=== PATIENT | male | born 1935 | race Caucasian/White ===

== ENCOUNTER 2017-06-08 11:02 | Day surgery (SDC) | payer MEDICARE ==
--- NOTE | 2017-06-08 12:10 | ED Physician Documentation ---
PD HPI UPPER EXT INJURY - Stated complaint Stated Complaint: R HAND LAC - Chief complaint Chief Complaint: Laceration - History obtained from History obtained from: Patient - History of Present Illness Location: Other (He was at home working on his 's computer, he took out the hard drive and there was a sharp edge on it and he cut the dorsum of the right hand at the second digit, the level of the MCP. He is up-to-date on tetanus.) Review of Systems Ten Systems: 10 systems reviewed and negative Constitutional: reports: Reviewed and negative Throat: reports: Reviewed and negative Cardiac: reports: Reviewed and negative PD PAST MEDICAL HISTORY - Past Medical History Past Medical History: Yes Cardiovascular: None Respiratory: Asthma Endocrine/Autoimmune: None GI: GERD, Colon polyps, Diverticulitis : Benign prostate hypertrophy, Kidney stones HEENT: Chronic vision loss, Chronic hearing loss Psych: None Musculoskeletal: Osteoarthritis Derm: None - Past Surgical History Past Surgical History: Yes General: Appendectomy, Colonoscopy, EGD HEENT: Tonsil/Adenoidectomy - Present Medications Home Medications: Ambulatory Orders Medication Instructions Recorded Confirmed Albuterol [Ventolin Hfa] 1 mg INH BID 05/18/15 07/01/16 Aspirin [Aspir 81] 81 mg PO DAILY 05/18/15 07/01/16 Fluticasone [Flonase] 1 spray PAPI DAILY 05/18/15 07/01/16 Loratadine [Claritin] 10 mg PO DAILY 05/18/15 07/01/16 Melatonin 5 mg PO DAILY 05/18/15 07/01/16 Pantoprazole [Protonix] 1 tab PO DAILY 06/08/17 06/08/17 - Allergies Allergies/Adverse Reactions: Allergies Allergy/AdvReac Type Severity Reaction Status Date / Time Sulfa (Sulfonamide Allergy Anaphylaxis Verified 06/08/17 12:19 Antibiotics) hydrocodone AdvReac Unknown Verified 06/08/17 12:19 oxycodone AdvReac Unknown Verified 06/08/17 12:19 - Social History Does the pt smoke?: Yes Smoking Status: Current every day smoker Does the pt drink ETOH?: Yes ETOH Use: Wine Does the pt have substance abuse?: No - Family History Family history: reports: Non contributory - Immunizations Immunizations are current?: Yes PD ED PE NORMAL - Vitals Vital signs reviewed: Yes - General General: Alert and oriented X 3, No acute distress - HEENT HEENT: PERRL, EOMI - Neck Neck: Supple, no meningeal sign, No bony TTP - Cardiac Cardiac: RRR, No murmur - Respiratory Respiratory: No respiratory distress, Clear bilaterally - Abdomen Abdomen: Soft, Non tender - Back Back: No CVA TTP, No spinal TTP - Derm Derm: Normal color, Warm and dry - Extremities Extremities: Other (On the dorsal surface of the right hand at the level of the second MCP there is a 2 cm laceration that has almost completely lacerated the extensor tendon and he has no function with extensor tendon strength, he does have normal cap refill and sensation at both sides of the tip.) - Neuro Neuro: Alert and oriented X 3, Normal speech - Psych Psych: Normal mood, Normal affect Results - Vitals Vitals: Vital Signs - 24 hr 06/08/17 06/08/17 11:07 12:31 Temperature 36.7 C 36.5 C Heart Rate 60 59 L Respiratory 16 16 Rate Blood Pressure 149/79 H 142/78 H O2 Saturation 99 99 Oxygen O2 Source Room air Procedures - Laceration (location) R hand Length in cm: 2 Wound type: Linear Neurovascular status: Sensory intact. No: Motor intact Tendon involvement: Tendon Injury Anesthesia: Lidocaine 1%, With bicarb Wound Preparation: Irrigated copiously NS Skin layer closure: Nylon, Interrupted, Size #-0 - enter number (4-0), Sutures - enter # (5) Other: Tetanus UTD Complexity: Simple PD MEDICAL DECISION MAKING - ED course ED course: 82-year-old gentleman relatively healthy for age presents with an extensive tendon laceration of the right second finger at the level of the MCP, he is up- to-date on tetanus. Wound was irrigated and closed, spoke with Dr. Crowe, the on- call orthopedist at 12:20 PM, he will check with the OR and if able take him to the OR today for Definitive extensor tendon repair. He did take him directly to the OR for extensor tendon repair. At his request he received Ancef in the ER. Departure - Departure Disposition: ED Transfer to [facility] Clinical Impression: Extensor tendon laceration of finger with open wound Qualifiers: Encounter type: initial encounter Qualified Code(s): S66.529A - Laceration of intrinsic muscle, fascia and tendon of unspecified finger at wrist and hand level, initial encounter Condition: Stable Discharge Date/Time: 06/08/17 13:55
[2017-06-08] MEDS ORDERED: BUFFERED LIDOCAINE 10 ML SYRINGE ONE (12:16)
[2017-06-08] MEDS ORDERED: SODIUM CHLORIDE 0.9% 1,000 ML IV ONE ×2 (12:35→14:31)
[2017-06-08] MEDS ORDERED: SODIUM CHLORIDE FLUSH 0.9% 10 ML SYRINGE IVP ONE (12:54)
[2017-06-08] MEDS ORDERED: ceFAZolin 2 GM/50 ML 2 GM/50 ML BAG IV ONE ×2 (13:04→13:22)
--- NOTE | 2017-06-08 13:30 | PROVIDER PROGRESS NOTE ---
Subjective - Prog Note Date Prog Note Date: 06/08/17 Prog Note Time: 13:27 - Subjective Subjective: Sustained a dorsal laceration about the right dominant index finger MCP joint. No distal weakness/numbness, although some limitation in finger extension Objective - Vital Signs/Intake & Output Vital Signs: Vital Signs x48h Temp Pulse Resp BP Pulse Ox 06/08/17 12:31 36.5 C 59 L 16 142/78 H 99 06/08/17 11:07 36.7 C 60 16 149/79 H 99 - Other Results/Comments Other Results/Comments: EXAM: Dorsal index finger laceration repaired by ED MD. Active extension of index finger MCP joint showed 10-15 degree extensor lag. N/V ok distally Assessment/Plan - Problem List (1) Extensor tendon laceration of finger with open wound Impression: PLAN: Surgical exploration of finger laceration with wash out and repair of extensor tendon laceration in OR as an putoatient today. Last ate yesterday; only water and meds at 0900 today. Consent signed. Note dictated Qualifiers: Encounter type: initial encounter Qualified Code(s): S66.529A - Laceration of intrinsic muscle, fascia and tendon of unspecified finger at wrist and hand level, initial encounter; S61.209A - Unspecified open wound of unspecified finger without damage to nail, initial encounter; S61.209A - Unspecified open wound of unspecified finger without damage to nail, initial encounter
--- NOTE | 2017-06-08 13:46 | HISTORY & PHYSICAL EXAMINATION ---
DATE OF ADMISSION: 06/08/2017 REQUESTING PROVIDER: Dr. Mayank Covarrubias of the emergency room. CHIEF COMPLAINT: "I cut my right index finger." HISTORY OF PRESENT ILLNESS: The patient is an 82-year-old right hand dominant male who was apparently attempting to remove the hard drive from his 's PC sustaining a dorsal laceration over his index finger at approximately 11 a.m. on the morning of his admission. Exploration done in the e mergency room by Dr. Covarrubias showed the patient had extensor tendon laceration to the index finger. He had limitation in his active extension of his finger. Wound was washed then primarily closed. Becaus e of the involvement of the tendon it was elected to take him to the operating room as an outpatient for an exploration and repair as indicated. The patient denies having any problems with his finger in the past. No other injuries occurred. PAST MEDICAL HISTORY: Chronic illnesses - history of hypertension. CURRENT MEDICATIONS: PLEASE SEE ADMISSION NOTE IN THE EMERGENCY ROOM. ALLERGIES: 1. SULFA. 2. OPIOID ANALGESICS SUCH HYDROCODONE AND OXYCODONE. FAMILY HISTORY: Noncontributory. REVIEW OF SYSTEMS: Noncontributory. PHYSICAL EXAMINATION: Revealed a healthy-appearing, elderly male in mild distress. VITAL SIGNS: Please see ER admission note. HEENT: Normocephalic, PERRLA. EOMI. Nose and throat clear. NECK: Supple without nodes. CHEST: Clear. CARDIOVASCULAR: Regular rate and rhythm. S1 and S2 heard without murmurs, rubs, or gallops. ABDOMEN: Soft, nontender. Active bowel sounds noted. EXTREMITIES: Within normal limits except for the right index finger. The patient has primarily repair ed oblique laceration just proximal to the MCP joint of his index finger. Minimal swelling or erythem a noted. The patient does have some extension of the MCP joint actively though he does have about 10- 15 degrees extensor lag noted. The patient neurovascular is intact distally in his index finger and t he rest of his digits as well. NEUROLOGIC: The patient alert and oriented x3. Sensory and motor examination grossly intact and symme trical. ASSESSMENT: Right dominant index finger laceration - involves extensor tendon laceration. PLAN: Treatment options were explained to the patient. He is in favor of proceeding with surgical exp loration of his wound and repair of his extensor tendon laceration as indicated. The risks and benefi ts of surgery explained including anesthesia, risk of infection or tendon damage, neurovascular compr omise. The patient appears to understand these risks as well as the benefits of proceeding with surge ry and wishes to proceed. Consent has been signed. JOB #: [id number] EXT JOB #:[id number]
[2017-06-08] MEDS ORDERED: BUPIVACAINE 0.5% PF 30 ML VIAL INFIL ONE (14:24)
[2017-06-08] MEDS ORDERED: MIDAZOLAM 2 MG/2 ML VIAL IVP ONE (14:40)
[2017-06-08] MEDS ORDERED: PROPOFOL 200 MG/20 ML VIAL IVP ONE (14:40)
[2017-06-08] MEDS ORDERED: LIDOCAINE-MPF 2% 5 ML VIAL IM ONE (14:40)
--- NOTE | 2017-06-08 14:53 | OPERATIVE REPORT ---
Operative Report - General Procedure Date: 06/08/17 Planned Procedure: Repair of right index finger extensor tendon laceration Pre-Op Diagnosis: Right index finger extensor tendon laceration Procedure Performed: Irrigation and debridement of right index finger laceration; primary repair of right index finger extensor tendon laceration Post Op Diagnosis: Same - Procedure Note Primary Surgeon: Thanh Crowe Secondary Surgeon: Isa Anesthesia Provider: Jeferson Bunch Anesthesia Technique: General ET tube IV Fluids (mL): 500 Estimated Blood Loss (mL): 50
[2017-06-08 15:06] VITALS: BP 132/59
--- NOTE | 2017-06-08 15:14 | OPERATIVE REPORT ---
DATE OF SURGERY: 06/08/2017 00:00:00 PREOPERATIVE DIAGNOSES 1. Right dominant index finger laceration. 2. Right index finger extensor tendon laceration. POSTOPERATIVE DIAGNOSES 1. Right dominant index finger laceration. 2. Right index finger extensor tendon laceration. NAME OF PROCEDURE: Irrigation and debridement of right index finger laceration, primary repair of rig ht index finger extensor tendon laceration. SURGEON: Thanh Crowe MD. ANESTHESIA: General. DESCRIPTION OF PROCEDURE: The patient was taken to the operating room on the afternoon of 06/08/2017 where he was placed under general anesthetic without any complications. Prior to our incision, we did put a field block using 15 mL of 0.5% Marcaine without epinephrine about the dorsum of his index fin traci about the metacarpophalangeal joint. We then prepped and draped the finger in the usual fashion f or our procedure. We opened the wound up, which had been previously closed by the emergency room doct or. This then exposed the transverse extensor tendon laceration over the extensor mechanism overlying the MTP joint. I then copiously irrigated the wound out thoroughly with 1000 mL of irrigation soluti on. We then repaired the extensor tendon laceration using several horizontal mattress stitches of 4-0 Polysorb suture. This approximated the extensor tendon laceration and laceration extensor mechanism nicely. We then closed the skin laceration using interrupted horizontal mattress stitches of 4-0 nylo n suture. We then washed the wound and dressed it with Xeroform gauze and 4 x 4's. We then applied a palmar metal aluminum finger splint holding the MCP joint in approximately 10 degrees of flexion with the IP joint of the index finger in extension. It should be noted that we did inflate the tourniquet for 16 minutes at 250 mmHg pressure during the mid portion of our incision to assist with hemostasis as we repaired the extensor tendon laceration. At the end of procedure after we had dressed the wound, the patient was taken to the recovery room in satisfactory condition. ESTIMATED BLOOD LOSS: Less than 50 mL. REPLACEMENT: 500 mL of crystalloid. INTRAOPERATIVE COMPLICATIONS: None. TOURNIQUET TIME: 6 minutes. PLAN: The patient will keep the finger in about 10-15 degrees of flexion at the MCP joint for approxi mately 3-4 weeks. We will then begin working on active range of motion at the MCP joint in flexion an d extension. Will follow up in the orthopedic clinic in approximately 10 days' time for a wound check and suture removal as indicated. JOB #: [id number] EXT JOB #:[id number]
== END 2017-06-08 13:23 | disposition home or self-care (01) ==
LOC: ED 11:02 → SDS 13:22
PROVIDERS: ATTEND Orthopaedic Surgery
PROC: 0LQ70ZZ Repair Right Hand Tendon, Open Approach (ICD-10-PCS; principal; 2017-06-08 13:15)
DX: S66.320A Laceration of extensor muscle, fascia and tendon of right index finger at wrist and hand level, initial encounter (principal); S61.210A Laceration without foreign body of right index finger without damage to nail, initial encounter; W26.8XXA Contact with other sharp object(s), not elsewhere classified, initial encounter; J45.909 Unspecified asthma, uncomplicated; F17.200 Nicotine dependence, unspecified, uncomplicated
CPT/HCPCS: 26418; 96365; 99283; 99284; J0690; 12001

== ENCOUNTER 2018-04-21 09:23 | Outpatient (CLI) | payer MEDICARE ==
[2018-04-21 12:26] LABS: BASOPHILS # (AUTO) 0.1 10^3/uL (0.0-0.1); BASOPHILS % (AUTO) 1.7 %; EOSINOPHILS # (AUTO) 0.5 10^3/uL (0.0-0.7); EOSINOPHILS % (AUTO) 8.7 %; HGB - HEMOGLOBIN 13.8 g/dL (14.0-18.0); LYMPHOCYTES # (AUTO) 1.5 10^3/uL (1.5-3.5); LYMPHOCYTES % (AUTO) 25.8 %; MEAN CORPUSCULAR HEMOGLOBIN 35.2 pg (27.0-31.0); MEAN CORPUSCULAR HGB CONC 35.2 g/dL (32.0-36.0); MEAN PLATELET VOLUME 8.1 fL (7.4-11.4); MONOCYTES # (AUTO) 0.7 10^3/uL (0.0-1.0); MONOCYTES % (AUTO) 11.3 %; NEUTROPHILS # (AUTO) 3.1 10^3/uL (1.5-6.6); NEUTROPHILS % (AUTO) 52.5 %; PLT - PLATELET COUNT 259 10^3/uL (130-450); RED BLOOD COUNT 3.92 10^6/uL (4.70-6.10); RED CELL DISTRIBUTION WIDTH 13.9 % (12.0-15.0); WHITE BLOOD COUNT 5.9 x10^3/uL (4.8-10.8)
[2018-04-21 12:29] LABS: ALBUMIN 4.1 g/dL (3.2-5.5); ALBUMIN/GLOBULIN RATIO 1.6 (1.0-2.2); ALKALINE PHOSPHATASE 58 IU/L (42-121); ALT ALANINE AMINOTRANSFERASE 18 IU/L (10-60); AST ASPARTATE AMINOTRANSFERASE 20 IU/L (10-42); BUN - BLOOD UREA NITROGEN 18 mg/dL (6-20); CALCIUM 9.3 mg/dL (8.5-10.3); CARBON DIOXIDE - CO2 29 mmol/L (21-32); CHLORIDE 103 mmol/L (101-111); CHOL/HDL RATIO 2.9 (<5.0); CHOLESTEROL 163 mg/dL; GFR - MDRD 72 (>89); GLUCOSE 92 mg/dL (70-100); HDL CHOLESTEROL 56 mg/dL; LDL CHOLESTEROL,CALCULATED 89 mg/dL; LDL/HDL RATIO 1.6 (<3.6); SODIUM 140 mmol/L (135-145); TOTAL PROTEIN 6.6 g/dL (6.7-8.2); VLDL CHOLESTEROL 18 mg/dL
== END 2018-04-21 09:24 ==
LOC: LAB.WCP 09:23
PROVIDERS: ATTEND Family Medicine
DX: R05 Cough (principal); E55.9 Vitamin D deficiency, unspecified; R19.7 Diarrhea, unspecified; E78.5 Hyperlipidemia, unspecified; N40.0 Benign prostatic hyperplasia without lower urinary tract symptoms
CPT/HCPCS: 36415; 80053; 80061; 82306; 84443; 85025; G0103; 83721; 84153

== ENCOUNTER 2018-04-30 14:52 | Outpatient (CLI) | payer MEDICARE | END 2018-04-30 14:53 | disposition home or self-care (01) | LOC: LAB.R 14:52 | PROVIDERS: ATTEND Family Medicine | DX: R05 Cough (principal); R19.7 Diarrhea, unspecified; E55.9 Vitamin D deficiency, unspecified; E78.9 Disorder of lipoprotein metabolism, unspecified | CPT/HCPCS: 82274; 87045; 87046; 87177; 87209; 89055 ==

== ENCOUNTER 2018-05-05 13:09 | Outpatient (CLI) | payer MEDICARE ==
[2018-05-05] MEDS ORDERED: ALBUTEROL NEB 2.5 MG/3 ML INH ONE (14:00)
== END 2018-05-05 13:10 | disposition home or self-care (01) ==
LOC: RT 13:09
PROVIDERS: ATTEND Family Medicine
DX: R05 Cough (principal); M85.88 Other specified disorders of bone density and structure, other site
CPT/HCPCS: 77080; 94060; 94664

== ENCOUNTER 2018-05-05 14:57 | Outpatient (CLI) | payer MEDICARE ==
--- NOTE | 2018-05-06 08:41 | DEXA Report ---
Reason: OSTEOPOROSIS Procedure Date: 05/05/2018 Accession Number: [id number] / [id number] Procedure: DEX - Dexa Spine and/or Hip CPT Code: FULL RESULT: EXAM: Dexa Spine and/or Hip DATE: 05/05/2018 4:20 PM CLINICAL HISTORY: OSTEOPOROSIS TECHNIQUE: Dual energy x-ray absorptiometry (DXA) was performed on a [email or web address] System. Regions measured are the AP Spine, femoral neck, and if needed forearm. COMPARISON: None. In accordance with the International Society for Clinical Densitometry (ISCD) guidelines, data from previous exams may be reanalyzed using current recommendations and techniques. This is done to allow a more accurate basis for comparison with the current study. FINDINGS: The data for the lumbar spine is as follows: BMD (g/cm/cm) T-SCORE Z-SCORE REGION L1 1.508 2.9 4.0 L2 1.618 3.1 4.2 L3 1.493 2.1 3.2 L4 1.473 1.9 3.0 TOTAL 1.515 2.5 3.5 NOTE: All evaluable vertebrae are used for classification The data for the hip is as follows: BMD (g/cm/cm) T-SCORE Z-SCORE REGION Neck 0.990 -0.6 1.2 TOTAL 0.961 -1.0 0.4 NOTE: The femoral neck or total proximal femur, whichever is lowest, is used for classification. IMPRESSION: THE WHO CLASSIFICATION BASED ON THE INTERNATIONAL REFERENCE STANDARD IS OSTEOPENIA. THE FRACTURE RISK IS INCREASED. RECOMMENDATION: Patients with diagnosis of osteoporosis or osteopenia should have regular bone mineral density assessment. For those eligible for Medicare, routine testing is allowed once every 2 years. Testing frequency can be increased for patients who have rapidly progressing disease or for those who are receiving medical therapy to restore bone mass. COMMENT: World Health Organization (WHO) definitions for osteoporosis and osteopenia: NORMAL BMD: T-score at -1.0 or higher, fracture risk is low OSTEOPENIA BMD: T-score between -1.0 and -2.5, fracture risk is increased. OSTEOPOROSIS BMD: T-score at -2.5 or lower, fracture risk is high. National Osteoporosis Foundation recommends: 1. Obtain adequate dietary calcium (at least 1200 mg per day) and vitamin D (400-800 international units per day). 2. Participate, as appropriate, in regular weightbearing and muscle-strengthening exercise. 3. Avoid tobacco use and reduce alcohol and caffeine intake. 4. For more detailed information see the website at www.NOF.org.
== END 2018-05-05 14:58 | disposition home or self-care (01) ==
LOC: DI 14:57
PROVIDERS: ATTEND Family Medicine
DX: M85.88 Other specified disorders of bone density and structure, other site (principal)
CPT/HCPCS: 77080

== ENCOUNTER 2018-05-17 09:58 | Day surgery (SDC) | payer MEDICARE ==
[2018-05-17] MEDS ORDERED: LACTATED RINGERS 1,000 ML IV ONE (10:58)
[2018-05-17] MEDS ORDERED: LIDO GARGLE 30 ML BOTTLE ONE (11:25)
[2018-05-17] MEDS ORDERED: MIDAZOLAM 2 MG/2 ML VIAL IVP ONE (12:58)
[2018-05-17] MEDS ORDERED: fentaNYL 100 MCG/2 ML VIAL IVP ONE (12:58)
[2018-05-17 14:44] VITALS: BP 137/72
== END 2018-05-17 09:59 | disposition home or self-care (01) ==
LOC: SDS 09:58
PROVIDERS: ATTEND Surgery
PROC: 0DB68ZX Excision of Stomach, Via Natural or Artificial Opening Endoscopic, Diagnostic (ICD-10-PCS; 2018-05-17)
PROC: 0DB38ZX Excision of Lower Esophagus, Via Natural or Artificial Opening Endoscopic, Diagnostic (ICD-10-PCS; principal; 2018-05-17 11:15)
DX: K22.70 Barrett's esophagus without dysplasia (principal); K29.70 Gastritis, unspecified, without bleeding; F17.290 Nicotine dependence, other tobacco product, uncomplicated
CPT/HCPCS: 43239; A9270; J7120

== ENCOUNTER 2018-11-04 08:00 | Outpatient (CLI) | payer MEDICARE ==
[2018-11-04 19:05] LABS: HGB - HEMOGLOBIN 12.9 g/dL (14.0-18.0); MEAN CORPUSCULAR HEMOGLOBIN 33.4 pg (27.0-31.0); MEAN CORPUSCULAR VOLUME 101.2 fL (80.0-94.0); MEAN PLATELET VOLUME 7.8 fL (7.4-11.4); RED BLOOD COUNT 3.85 10^6/uL (4.70-6.10); RED CELL DISTRIBUTION WIDTH 13.7 % (12.0-15.0); WHITE BLOOD COUNT 5.6 x10^3/uL (4.8-10.8)
[2018-11-04 19:18] LABS: RHEUMATOID FACTOR NEGATIVE (Negative)
== END 2018-11-04 23:59 | disposition home or self-care (01) ==
LOC: LAB.WCP 08:00
PROVIDERS: ATTEND Family Medicine
DX: M31.6 Other giant cell arteritis (principal)
CPT/HCPCS: 36415; 85027; 85651; 86140; 86200; 86430

== ENCOUNTER 2019-02-07 12:30 | Outpatient (CLI) | payer MEDICARE | END 2019-02-07 12:31 | disposition home or self-care (01) | LOC: LAB.WCP 12:30 | PROVIDERS: ATTEND Family Medicine | DX: Z11.59 Encounter for screening for other viral diseases (principal) | CPT/HCPCS: 81599 ==

== ENCOUNTER 2019-02-07 13:24 | Outpatient (CLI) | payer MEDICARE ==
--- NOTE | 2019-02-07 16:03 | XRAY Report ---
Reason: SHOULDER JOINT PAIN,LEFT Procedure Date: 02/07/2019 Accession Number: [id number] / [id number] Procedure: WCP - Shoulder 2 View LT CPT Code: FULL RESULT: EXAM: LEFT SHOULDER RADIOGRAPHY EXAM DATE: 02/07/2019 02:30 PM. CLINICAL HISTORY: Shoulder joint pain, left. COMPARISON: None. TECHNIQUE: 2 views. FINDINGS: Bones: Normal. No fracture or aggressive appearing bone lesion. Joints: The glenohumeral and acromioclavicular joints are normally located. Soft tissues: There is a hyperdense soft tissue prominence along the proximal humeral shaft on the axillary view which appears to be ovoid in shape, 6.4 cm long and 3.2 cm thick. IMPRESSION: No fracture or dislocation. Apparent soft tissue mass is of unclear significance. This could potentially be due to overlap of soft tissues. Recommendation: If the patient is tender along the proximal humeral diaphysis, recommend additional imaging by ultrasound. Otherwise, clinical correlation versus radiographic clarification with 2 views of the humerus. RADIA
== END 2019-02-07 13:25 | disposition home or self-care (01) ==
LOC: DI.WCP 13:24
PROVIDERS: ATTEND Family Medicine
DX: M25.512 Pain in left shoulder (principal); R93.7 Abnormal findings on diagnostic imaging of other parts of musculoskeletal system; Z11.59 Encounter for screening for other viral diseases
CPT/HCPCS: 81599

== ENCOUNTER 2019-02-10 10:15 | Outpatient (CLI) | payer MEDICARE ==
--- NOTE | 2019-02-11 08:59 | CT Report ---
Reason: COPD,COUGH CHRONIC Procedure Date: 02/10/2019 Accession Number: [id number] / [id number] Procedure: CT - CHEST WO CPT Code: FULL RESULT: EXAM: CT CHEST EXAM DATE: 02/10/2019 10:35 AM. CLINICAL HISTORY: COPD, chronic cough. COMPARISONS: 10/30/2008 9:13 PM. TECHNIQUE: Routine helical CT imaging was performed through the chest. IV contrast: None. Reconstructions: Coronal and sagittal. In accordance with CT protocol optimization, one or more of the following dose reduction techniques were utilized for this exam: automated exposure control, adjustment of mA and/or KV based on patient size, or use of iterative reconstructive technique. FINDINGS: Lungs/Pleura: Mild linear atelectasis or scarring present about the left base. No consolidation, nodules, effusions or edema evident. No bronchial wall thickening evident. No visible changes of emphysema but the lungs do appear mildly hyperinflated.. Mediastinum: The mediastinum is narrowed. No mediastinal mass or adenopathy. Mild to moderate coronary arterial vascular calcification present. The aorta is normal in caliber. Bones: Severe L1-L2 degenerative disk disease present. More mild to moderate disease present throughout the mid thoracic spine. Visualized Abdomen: A solitary gallbladder stone is again present unchanged. Other: None. IMPRESSION: 1. No acute consolidation. Mild linear atelectasis or scarring left base. 2. Pulmonary hyperinflation present but without significant visible emphysema. 3. Solitary gallbladder stone as before. RADIA
== END 2019-02-10 10:16 | disposition home or self-care (01) ==
LOC: DI 10:15
PROVIDERS: ATTEND Family Medicine
DX: J44.9 Chronic obstructive pulmonary disease, unspecified (principal); R05 Cough
CPT/HCPCS: 71250

== ENCOUNTER 2019-09-06 09:44 | Outpatient (CLI) | payer MEDICARE ==
--- NOTE | 2019-09-06 12:23 | MRI Report ---
Reason: CERVICAL RADICULOPATHY Procedure Date: 09/06/2019 Accession Number: [id number] / [id number] Procedure: MRI - Cervical Spine W/O CPT Code: Final Report FULL RESULT: EXAM: MRI CERVICAL SPINE WITHOUT CONTRAST EXAM DATE: 09/06/2019 10:35 AM. CLINICAL HISTORY: CERVICAL RADICULOPATHY. COMPARISONS: MRI CERVICAL SPINE 08/14/2012 12:31 PM. TECHNIQUE: Multiplanar, multisequence T1-weighted and fluid-sensitive sequences of the cervical spine without contrast. Other: None. FINDINGS: Neurologic Structures: The visualized posterior fossa structures are unremarkable. No signal abnormality in the visualized spinal cord. Alignment: Grade 1 anterolisthesis at C4-C5 by approximately 2 mm. Bone Marrow: No gross fractures or bone lesions. No marrow edema. Interspace Levels/Facets: The craniocervical junction is unremarkable. C1-C2: Unremarkable. C2-C3: Bony fusion (ankylosis) at the uncovertebral and facet joints. No stenosis. C3-C4: Small posterior right paracentral disk protrusion/osteophyte complex which has increased slightly in size since the prior study. Ligamentum flavum hypertrophy. Mild to moderate canal stenosis which has increased since the prior study. No cord impingement. Mild to moderate left and moderate to severe right facet arthropathy. Moderate size right facet joint effusion. Moderate to severe right foraminal stenosis which has increased since the prior study. Mild left foraminal stenosis. C4-C5: Small disk bulge/osteophyte complex. Right-sided uncovertebral joint osteophytes. Mild to moderate left and moderate to severe right facet arthropathy. Small right facet joint effusion. Mild canal stenosis. Moderate right foraminal stenosis. No change. C5-C6: Degenerative endplate changes. Mild to moderate disk space narrowing. Small disk bulge/osteophyte complex. Bilateral uncovertebral joint osteophytes. Mild canal stenosis. Mild to moderate left and mild right foraminal stenosis. Mild left facet arthropathy. No change. C6-C7: Degenerative endplate changes. Moderate disk space narrowing. Small disk bulge. Left-sided uncovertebral joint osteophytes. Mild left foraminal stenosis. No change. C7-T1: Mild facet arthropathy. No stenoses. No change. Musculature: Normal. No edema or fatty atrophy. Other: There is an approximately 1.2 x 0.7 cm right thyroid lobe nodule (previously 0.9 x 0.7 cm). There is a 0.6 x 0.6 cm left thyroid lobe nodule which is new since the prior study. IMPRESSION: 1. Multilevel degenerative disk changes, osteophytosis, and facet arthropathy. There are varying degrees of stenoses. Most of the findings are unchanged since the previous study. There are slightly worse findings at C3-C4. 2. Slight interval increase in size of small posterior right paracentral disk protrusion/osteophyte complex at C3-C4. Mild to moderate canal stenosis which has increased in size since the prior study. Moderate to severe right foraminal stenosis which has increased since the prior study. 3. Small disk bulge/osteophyte complex at C4-C5. Mild canal and moderate right foraminal stenosis. No change. 4. Bilateral thyroid lobe nodules. The right thyroid lobe nodule has increased slightly in size in the left thyroid lobe nodule is new since the prior study. RADIA
== END 2019-09-06 09:45 | disposition home or self-care (01) ==
LOC: DI 09:44
PROVIDERS: ATTEND Family Medicine
DX: M50.11 Cervical disc disorder with radiculopathy, high cervical region (principal); M48.02 Spinal stenosis, cervical region; M47.22 Other spondylosis with radiculopathy, cervical region
CPT/HCPCS: 72141

== ENCOUNTER 2019-09-21 08:00 | Outpatient (CLI) | payer MEDICARE ==
[2019-09-21 20:00] LABS: THYROID STIMULATING HORMONE 4.65 uIU/mL (0.34-5.60)
[2019-09-21 20:01] LABS: FREE T4 (FREE THYROXINE) 0.79 ng/dL (0.58-1.64)
== END 2019-09-21 23:59 | disposition home or self-care (01) ==
LOC: LAB.N 08:00
PROVIDERS: ATTEND Family Medicine
DX: E04.1 Nontoxic single thyroid nodule (principal)
CPT/HCPCS: 36415; 84439; 84443; 84481; 86800

== ENCOUNTER 2019-09-30 10:14 | Outpatient (CLI) | payer MEDICARE ==
--- NOTE | 2019-10-02 08:46 | Ultrasound Report ---
Reason: THYROID NODULE Procedure Date: 09/30/2019 Accession Number: [id number] / [id number] Procedure: US - Head or Neck Soft Tissue CPT Code: Final Report FULL RESULT: EXAM: THYROID ULTRASOUND EXAM DATE: 09/30/2019 11:13 AM. CLINICAL HISTORY: Follow-up thyroid nodule. COMPARISON: MRI CERVICAL SPINE 08/14/2012 12:31 PM. TECHNIQUE: Real time sonographic imaging of the thyroid was performed by the systems eng. Multiple dental detail representative static images were saved for review. FINDINGS: THYROID GLAND: Right Lobe: 4.0 x 1.9 x 1.6 cm, volume 6.2 cc. Normal background echotexture. Right Lobe Nodules: A solid echogenic mildly heterogeneous nodule in the upper pole measures 1.3 x 1.4 x 1.1 cm. On prior MRI from 2011 a right thyroid nodule measuring 7 x 9 mm was identified. Left Lobe: 3.2 x 1.3 x 1.3 cm, volume 2.8 cc. Normal background echotexture. Left Lobe Nodules: A solid echogenic heterogeneous nodule in the lower pole measures 0.8 x 0.8 x 0.9 cm. Isthmus: 0.5 cm AP. Isthmic Nodules: None. LYMPH NODES: No adenopathy demonstrated in the central or lateral compartment. OTHER: None. IMPRESSION: 1.4 cm echogenic right and 0.9 cm echogenic left thyroid nodule. Neither meets WELSEY criteria for recommended biopsy at this time but may be followed sonographically in 12-24 months. Suggest comparison with any other outside studies if available. A 0.9 cm right thyroid nodule was identified on a 2012 MRI. Management recommendations are based on 2015 [place] [employer] Management Guidelines for Adult Patients with Thyroid Nodules and Differentiated Thyroid Cancer. RADIA
== END 2019-09-30 10:15 | disposition home or self-care (01) ==
LOC: DI 10:14
PROVIDERS: ATTEND Family Medicine
DX: E04.2 Nontoxic multinodular goiter (principal)
CPT/HCPCS: 76536

== ENCOUNTER 2020-10-05 08:00 | Outpatient (CLI) | payer MEDICARE ==
[2020-10-05 19:14] LABS: BASOPHILS # (AUTO) 0.1 10^3/uL (0.0-0.1); BASOPHILS % (AUTO) 1.9 %; EOSINOPHILS # (AUTO) 0.3 10^3/uL (0.0-0.7); HGB - HEMOGLOBIN 12.7 g/dL (14.0-18.0); LYMPHOCYTES # (AUTO) 1.5 10^3/uL (1.5-3.5); LYMPHOCYTES % (AUTO) 32.7 %; MEAN CORPUSCULAR HEMOGLOBIN 34.1 pg (27.0-31.0); MEAN CORPUSCULAR VOLUME 106.7 fL (80.0-94.0); MEAN PLATELET VOLUME 10.3 fL (7.4-11.4); MONOCYTES # (AUTO) 0.5 10^3/uL (0.0-1.0); NEUTROPHILS # (AUTO) 2.2 10^3/uL (1.5-6.6); NEUTROPHILS % (AUTO) 48.2 %; PLT - PLATELET COUNT 260 10^3/uL (130-450); RED BLOOD COUNT 3.72 10^6/uL (4.70-6.10); WHITE BLOOD COUNT 4.7 x10^3/uL (4.8-10.8)
[2020-10-05 19:48] LABS: ALBUMIN 4.4 g/dL (3.2-5.5); ALBUMIN/GLOBULIN RATIO 2.1 (1.0-2.2); ALKALINE PHOSPHATASE 52 IU/L (42-121); ALT ALANINE AMINOTRANSFERASE 30 IU/L (10-60); AST ASPARTATE AMINOTRANSFERASE 25 IU/L (10-42); BILIRUBIN,TOTAL 0.8 mg/dL (0.2-1.0); BUN - BLOOD UREA NITROGEN 13 mg/dL (6-20); CALCIUM 9.7 mg/dL (8.5-10.3); CARBON DIOXIDE - CO2 27 mmol/L (21-32); CHLORIDE 103 mmol/L (101-111); CHOL/HDL RATIO 2.7 (<5.0); CHOLESTEROL 166 mg/dL; CREATININE 0.9 mg/dL (0.6-1.2); GLUCOSE 86 mg/dL (70-100); HDL CHOLESTEROL 61 mg/dL; LDL CHOLESTEROL,CALCULATED 87 mg/dL; LDL/HDL RATIO 1.4 (<3.6); TOTAL PROTEIN 6.5 g/dL (6.7-8.2); VLDL CHOLESTEROL 18 mg/dL
== END 2020-10-05 23:59 | disposition home or self-care (01) ==
LOC: LAB.WCP 08:00
PROVIDERS: ATTEND Physician Assistant Medical
DX: E78.5 Hyperlipidemia, unspecified (principal); E04.1 Nontoxic single thyroid nodule; K21.9 Gastro-esophageal reflux disease without esophagitis
CPT/HCPCS: 36415; 80053; 80061; 83721; 84443; 85025

== ENCOUNTER 2020-10-25 14:43 | Outpatient (CLI) | payer MEDICARE ==
--- NOTE | 2020-10-25 18:52 | DEXA Report ---
PROCEDURE: Dexa Spine and/or Hip INDICATIONS: SCREENING FOR OSTEOPORSIS, THROID NODULE TECHNIQUE: Dual energy x-ray absorptiometry (DXA) was performed on a [employer] System. Regions measur ed are the AP Spine, femoral neck, and if needed forearm. COMPARISON: 05/05/2018. FINDINGS: Lumbar Spine: Bone Mineral Density 1.538 g/cm/cm,T score 2.7, there is interval 1.5% increase in total lumbar sp ine bone mineral density since previous study. Left Hip: Bone Mineral Density 0.947 g/cm/cm,T score -1.1, there is an oval 1.5% decrease in total left hip bon e mineral density. Left Femoral Neck: Bone Mineral Density 0.977 g/cm/cm, T score -0.7, (T score greater or equal to -1.0: NORMAL) (T score from -1.1 to -2.4: OSTEOPENIA) (T score less than or equal to -2.5 to: OSTEOPOROSIS) Impression: Osteopenia. Patients with diagnosis of osteoporosis or osteopenia should have regular bone mineral density assess ment. For those eligible for Medicare, routine testing is allowed once every 2 years. Testing frequ ency can be increased for patients who have rapidly progressing disease or for those who are receivin g medical therapy to restore bone mass. Reviewed by: Moisés Arauz MD on 10/25/2020 6:50 PM PST Approved by: Moisés Arauz MD on 10/25/2020 6:50 PM PST Station ID: [id number]
--- NOTE | 2020-10-26 08:45 | Ultrasound Report ---
PROCEDURE: Head or Neck Soft Tissue INDICATIONS: Thyroid NODULE TECHNIQUE: Real-time scanning was performed of the thyroid gland, with image documentation. COMPARISON: 09/30/2019 FINDINGS: Right: Thyroid lobe measures 3.4 x 2.0 x 1.8 cm, and is homogeneous in echotexture. Left: Thyroid lobe measures 2.8 x 1.7 x 1.2 cm, and is homogenous in echotexture. Isthmus: 4 mm thick. Nodule number: One Location: Right upper pole Size: 1.6 x 1.5 x 1.3 cm. Previously measured at 1.3 x 1.4 x 1.1 cm. Composition: Solid Echogenicity: Hyperechoic Shape: Round. Margins: Smooth Echogenic foci: None Total points: 3 ACR TI-RADS category: Mildly suspicious Nodule number: Two Location: Left lower pole Size: 0.9 x 0.7 x 0.8 cm. Stable Composition: Solid Echogenicity: Isoechoic Shape: Round Margins: Smooth Echogenic foci: None Total points: 3 ACR TI-RADS category: Mildly suspicious IMPRESSION: 1. Small thyroid gland with 2 stable echogenic nodules. Follow-up in 2 years is recommended. No need for FNA at this time. ACR TI-RADS definitions and recommendations: TI-RADS 1 (benign): 0 points. FNA not needed. TI-RADS 2 (not suspicious): 2 points. FNA not needed. TI-RADS 3 (mildly suspicious): 3 points. ? FNA if 2.5 cm or larger, follow up if 1.5 cm or larger (at 1, 3, and 5 years). TI-RADS 4 (moderately suspicious): 4-6 points. ? FNA if 1.5 cm or larger, follow up if 1 cm or larger (at 1, 2, 3, and 5 years). TI-RADS 5 (highly suspicious): 7 points or more. ? FNA if 1 cm or larger, follow up if 0.5 cm or larger (every year for 5 years). Reviewed by: Svetlana Ugalde MD on 10/26/2020 8:44 AM PST Approved by: Svetlana Ugalde MD on 10/26/2020 8:44 AM PST Station ID: [id number]
== END 2020-10-25 14:44 | disposition home or self-care (01) ==
LOC: DI 14:43
PROVIDERS: ATTEND Physician Assistant Medical
DX: Z13.820 Encounter for screening for osteoporosis (principal); M85.89 Other specified disorders of bone density and structure, multiple sites; E04.2 Nontoxic multinodular goiter

== ENCOUNTER 2020-11-27 08:00 | Outpatient (CLI) | payer MEDICARE ==
--- NOTE | 2020-11-27 13:32 | XRAY Report ---
PROCEDURE: Shoulder 3 View LT INDICATIONS: LEFT SHOULDER PAIN TECHNIQUE: 3 views of the shoulder were acquired. COMPARISON: None. FINDINGS: Bones: No fractures or dislocations. Moderate acromioclavicular joint and glenohumeral joint osteop hytic changes are seen. No suspicious bony lesions. Visualized ribs appear intact. Soft tissues: No suspicious soft tissue calcifications. IMPRESSION: Moderate acromioclavicular joint and glenohumeral joint osteoarthritis. No shoulder frac ture or dislocation. Reviewed by: Moisés Arazu MD on 11/27/2020 1:31 PM PDT Approved by: Moisés Arauz MD on 11/27/2020 1:31 PM PDT Station ID: [id number]
== END 2020-11-27 23:59 | disposition home or self-care (01) ==
LOC: DI.S 08:00
PROVIDERS: ATTEND Emergency Medicine
DX: M19.012 Primary osteoarthritis, left shoulder (principal)

== ENCOUNTER 2021-08-29 11:54 | Outpatient (CLI) | payer MEDICARE ==
[2021-08-29 15:27] LABS: BASOPHILS # (AUTO) 0.1 10^3/uL (0.0-0.1); BASOPHILS % (AUTO) 1.5 %; EOSINOPHILS # (AUTO) 0.2 10^3/uL (0.0-0.7); EOSINOPHILS % (AUTO) 4.2 %; HCT - HEMATOCRIT 36.1 % (42.0-52.0); HGB - HEMOGLOBIN 12.2 g/dL (14.0-18.0); LYMPHOCYTES # (AUTO) 1.3 10^3/uL (1.5-3.5); LYMPHOCYTES % (AUTO) 23.2 %; MEAN CORPUSCULAR HEMOGLOBIN 34.3 pg (27.0-31.0); MEAN CORPUSCULAR HGB CONC 33.8 g/dL (32.0-36.0); MEAN CORPUSCULAR VOLUME 101.4 fL (80.0-94.0); MEAN PLATELET VOLUME 9.9 fL (7.4-11.4); MONOCYTES # (AUTO) 0.6 10^3/uL (0.0-1.0); MONOCYTES % (AUTO) 10.2 %; NEUTROPHILS # (AUTO) 3.4 10^3/uL (1.5-6.6); NEUTROPHILS % (AUTO) 60.7 %; PLT - PLATELET COUNT 234 10^3/uL (130-450); RED BLOOD COUNT 3.56 10^6/uL (4.70-6.10); RED CELL DISTRIBUTION WIDTH 12.8 % (12.0-15.0); WHITE BLOOD COUNT 5.5 x10^3/uL (4.8-10.8)
[2021-08-29 16:03] LABS: ALBUMIN 3.7 g/dL (3.2-5.5); ALBUMIN/GLOBULIN RATIO 1.5 (1.0-2.2); ALKALINE PHOSPHATASE 61 IU/L (42-121); ALT ALANINE AMINOTRANSFERASE 18 IU/L (10-60); AST ASPARTATE AMINOTRANSFERASE 19 IU/L (10-42); BILIRUBIN,TOTAL 0.8 mg/dL (0.2-1.0); BUN - BLOOD UREA NITROGEN 13 mg/dL (6-20); CARBON DIOXIDE - CO2 29 mmol/L (21-32); CHLORIDE 105 mmol/L (101-111); CHOL/HDL RATIO 2.4 (<5.0); CHOLESTEROL 143 mg/dL; CREATININE 1.1 mg/dL (0.6-1.2); GFR - MDRD 64 (>89); GLUCOSE 102 mg/dL (70-100); HDL CHOLESTEROL 60 mg/dL; LDL CHOLESTEROL,CALCULATED 69 mg/dL; LDL/HDL RATIO 1.2 (<3.6); SODIUM 141 mmol/L (135-145); TOTAL PROTEIN 6.2 g/dL (6.7-8.2); TRIGLYCERIDES 69 mg/dL; VLDL CHOLESTEROL 14 mg/dL
[2021-08-29 16:10] LABS: THYROID STIMULATING HORMONE 4.36 uIU/mL (0.34-5.60)
[2021-08-29 16:14] LABS: FERRITIN 72.9 ng/mL (23.9-336.2)
[2021-08-29 16:35] LABS: CRP - C-REACTIVE PROTEIN < 1.0 mg/dL (0-1.0)
== END 2021-08-29 11:55 | disposition home or self-care (01) ==
LOC: LAB.S 11:54
PROVIDERS: ATTEND Physician Assistant Medical
DX: E78.5 Hyperlipidemia, unspecified (principal); D64.9 Anemia, unspecified; E04.1 Nontoxic single thyroid nodule; K52.9 Noninfective gastroenteritis and colitis, unspecified
CPT/HCPCS: 36415; 80053; 80061; 82728; 83721; 84443; 85025; 85651; 86140

== ENCOUNTER 2021-09-02 08:00 | Outpatient (CLI) | payer MEDICARE ==
[2021-09-02 14:52] LABS: H. PYLORIS ANTIGEN STL NEGATIVE (Negative)
[2021-09-02 21:58] LABS: FECAL OCCULT BLOOD (FIT) POSITIVE (NEGATIVE)
== END 2021-09-02 23:59 | disposition home or self-care (01) ==
LOC: LAB.S 08:00
PROVIDERS: ATTEND Physician Assistant Medical
DX: D64.9 Anemia, unspecified (principal); K52.9 Noninfective gastroenteritis and colitis, unspecified
CPT/HCPCS: 81599; 82274; 83993; 87045; 87046; 87177; 87209; 87329; 87338; 87493

== ENCOUNTER 2021-09-02 12:57 | Outpatient (CLI) | payer MEDICARE ==
--- NOTE | 2021-09-02 16:04 | Ultrasound Report ---
PROCEDURE: Head or Neck Soft Tissue INDICATIONS: THYROID NODULE TECHNIQUE: Real-time scanning was performed of the thyroid gland, with image documentation. COMPARISON: 10/25/2020 and 09/30/2019. FINDINGS: Right: Thyroid lobe measures 4.2 x 2.4 x 1.7 cm, and is homogeneous in echotexture. Left: Thyroid lobe measures 3.2 x 1.8 x 1.2 cm, and is homogenous in echotexture. Isthmus: 3 mm thick. Nodule number: One Location: Right superior Size: 1.6 x 1.5 x 1.4 cm. Previously 1.6 x 1.5 x 1.3 cm. Composition: Solid Echogenicity: Hyperechoic Shape: wider than tall. Margins: Smooth Echogenic foci: None Total points: 3 ACR TI-RADS category: Mildly suspicious Nodule number: Two Location: Left inferior Size: 1.0 x 0.8 x 0.9 cm. Previously 0.9 x 0.7 x 0.8 cm. Composition: Predominantly solid Echogenicity: Hyperechoic Shape: wider than tall. Margins: Smooth Echogenic foci: None Total points: 3 ACR TI-RADS category: Mildly suspicious IMPRESSION: Thyroid nodules stable compared to prior exams. Recommend follow-up ultrasound in 2 year s. ACR TI-RADS definitions and recommendations: TI-RADS 1 (benign): 0 points. FNA not needed. TI-RADS 2 (not suspicious): 2 points. FNA not needed. TI-RADS 3 (mildly suspicious): 3 points. "FNA if 2.5 cm or larger, follow up if 1.5 cm or larger (at 1, 3, and 5 years). TI-RADS 4 (moderately suspicious): 4-6 points. "FNA if 1.5 cm or larger, follow up if 1 cm or larger (at 1, 2, 3, and 5 years). TI-RADS 5 (highly suspicious): 7 points or more. "FNA if 1 cm or larger, follow up if 0.5 cm or larger (every year for 5 years). Reviewed by: Marilyn Gee MD, PhD on 09/02/2021 4:03 PM PST Approved by: Marilyn Gee MD, PhD on 09/02/2021 4:03 PM PST Station ID: [id number]
== END 2021-09-02 12:58 | disposition home or self-care (01) ==
LOC: DI 12:57
PROVIDERS: ATTEND Physician Assistant Medical
DX: E04.2 Nontoxic multinodular goiter (principal); K52.9 Noninfective gastroenteritis and colitis, unspecified; D64.9 Anemia, unspecified
CPT/HCPCS: 81599; 82274; 83993; 87045; 87046; 87177; 87209; 87329; 87338; 87493

== ENCOUNTER 2022-01-01 08:54 | Day surgery (SDC) | payer MEDICARE ==
--- NOTE | 2022-01-01 09:23 | ANESTHESIA ---
Pre-Anesthesia VS, & Labs - Diagnosis screening, dysphagia w/increased phlegm - Procedure EGD, colonoscopy with biopsies Vital Signs: Temp Pulse Resp BP Pulse Ox 36.8 C 61 14 146/68 H 100 01/01/22 09:03 01/01/22 09:03 01/01/22 09:03 01/01/22 09:03 01/01/22 09:03 Height: 5 ft 7 in Weight (kg): 62 kg Body Mass Index: 21.4 BMI Classification: Healthy weight - NPO >8 hours - Lab Results Lab results reviewed: Yes Home Medications and Allergies Albuterol [Ventolin Hfa] 1 mg INH Q4H PRN 05/18/15 Fluticasone [Flonase] 1 spray PAPI PRN PRN 05/18/15 Loratadine [Claritin] 10 mg PO DAILY 05/18/15 Multivitamin [Multiple Vitamins] 1 tab PO DAILY 05/14/18 Fluticasone/Salmeterol [Advair 100-50 Diskus] 1 puffs INH DAILY 07/06/19 traZODone [Desyrel] 25 mg PO DAILY 07/06/19 Allergies/Adverse Reactions: Allergies Allergy/AdvReac Type Severity Reaction Status Date / Time Sulfa (Sulfonamide Allergy Anaphylaxis Verified 07/07/19 08:57 Antibiotics) hydrocodone AdvReac Unknown Verified 07/07/19 08:57 oxycodone AdvReac Unknown Verified 07/07/19 08:57 Anes History & Medical History - Anesthetic History Anesthesia Complications: reports: No previous complications Family history of Anesthesia Complications: Denies Family history of Malignant Hyperthermia: Denies - Medical History Cardiovascular: reports: None Pulmonary: reports: Asthma, COPD Gastrointestinal: reports: GERD, Colon polyps, Diverticulitis Urinary: reports: Benign prostate hypertrophy, Kidney stones Musculoskeletal: reports: Osteoarthritis Endocrine/Autoimmune: reports: None Skin: reports: None Smoking Status: Current every day smoker - Surgical History General: reports: Appendectomy, Colonoscopy, EGD Eyes Ears Nose Throat (EENT): reports: Tonsil/Adenoidectomy Exam General: Alert, Oriented x3, Cooperative Dental: WNL Mouth Openin Fingerbreadth Neck Mobility: Normal Thyromental Distance: 4-6 cm Respiratory: Lungs clear, Normal breath sounds, No respiratory distress Cardiovascular: Regular rate Neurological: Normal speech Mental/Cognitive Status: Alert/Oriented X3, Normal for patient Cognitive Status: Within normal limits Plan Anesthesia Type: Total IV Consent for Procedure(s) Verified and Reviewed: Yes Code Status: Attempt Resuscitation ASA classification: 3-Severe systemic disease Is this case an emergency?: No
[2022-01-01] MEDS ORDERED: LACTATED RINGERS 1,000 ML IV ONE (09:32)
[2022-01-01] MEDS ORDERED: GLYCOPYRROLATE 1 MG/5 ML VIAL ONE (10:22)
[2022-01-01] MEDS ORDERED: BENZOCAINE/TETRACAINE/BUTAMBEN 20 GM MM ONE (10:33)
[2022-01-01] MEDS ORDERED: LACTATED RINGERS 500 ML IV ONE (10:48)
--- NOTE | 2022-01-01 11:10 | ANESTHESIA POST OP EVALUATION ---
Anesthesia Post Eval - Post Anesthesia Eval Vitals: Last Vital Signs Temp 36.4 C L 01/01/22 11:01 Pulse 71 01/01/22 11:07 Resp 20 01/01/22 11:07 BP 96/58 L 01/01/22 11:07 Pulse Ox 100 01/01/22 11:07 CV Function Including HR & BP: Stable Pain Control: Satisfactory Nausea & Vomiting: Negative Mental Status: Baseline Respiratory Status: Airway Patent Hydration Status: Satisfactory Anesthesia Complications: None
[2022-01-01 11:35] VITALS: BP 125/75
== END 2022-01-01 08:55 | disposition home or self-care (01) ==
LOC: SDS 08:54
PROVIDERS: ATTEND Surgery
PROC: 0DJD8ZZ Inspection of Lower Intestinal Tract, Via Natural or Artificial Opening Endoscopic (ICD-10-PCS; principal; 2022-01-01 10:00)
PROC: 0DB38ZX Excision of Lower Esophagus, Via Natural or Artificial Opening Endoscopic, Diagnostic (ICD-10-PCS; 2022-01-01 10:00)
DX: R19.5 Other fecal abnormalities (principal); K22.70 Barrett's esophagus without dysplasia; J44.9 Chronic obstructive pulmonary disease, unspecified; R13.10 Dysphagia, unspecified; K57.30 Diverticulosis of large intestine without perforation or abscess without bleeding; K64.8 Other hemorrhoids; N40.0 Benign prostatic hyperplasia without lower urinary tract symptoms; F17.200 Nicotine dependence, unspecified, uncomplicated
CPT/HCPCS: 43239; 45378; A9270; J7120

== ENCOUNTER 2022-06-06 09:02 | Outpatient (CLI) | payer MEDICARE | END 2022-06-06 09:03 | disposition home or self-care (01) | LOC: NS 09:02 | PROVIDERS: ATTEND Family Medicine | DX: R13.10 Dysphagia, unspecified (principal); Z71.3 Dietary counseling and surveillance; Z71.89 Other specified counseling; Z68.21 Body mass index [BMI] 21.0-21.9, adult | CPT/HCPCS: 97802 ==

== ENCOUNTER 2022-10-30 12:05 | Outpatient (CLI) | payer MEDICARE ==
--- NOTE | 2022-10-30 18:00 | Ultrasound Report ---
PROCEDURE: Head or Neck Soft Tissue INDICATIONS: THYROID NODULE TECHNIQUE: Real-time scanning was performed of the thyroid gland, with image documentation. COMPARISON: 10/25/2020 FINDINGS: Right: Thyroid lobe measures 3.8 x 1.9 x 1.5 cm, and is homogeneous in echotexture. Left: Thyroid lobe measures 3.5 x 2.2 x 1.1 cm, and is homogenous in echotexture. Isthmus: 3 mm thick. Nodule number: One Location: Right lobe superior Size: 1.6 x 1.6 x 1.1 cm. Previously 1.6 x 1.5 x 1.4 cm no significant change Composition: Solid Echogenicity: Hyperechoic Shape: wider than tall. Margins: Smooth Echogenic foci: None Total points: 3 ACR TI-RADS category: 3 Nodule number: Two Location: Left lobe inferior Size: 0.9 x 0.8 x 0.8 cm. Previously 1.0 x 0.8 x 0.9 cm no significant change Composition: Solid Echogenicity: Hypoechoic Shape: wider than tall. Margins: Smooth Echogenic foci: Size Total points: 4 ACR TI-RADS category: 4 IMPRESSION: No significant change in bilateral thyroid nodules. None meet TI-RADS criteria for FNA recommendation . ACR TI-RADS definitions and recommendations: TI-RADS 1 (benign): 0 points. FNA not needed. TI-RADS 2 (not suspicious): 2 points. FNA not needed. TI-RADS 3 (mildly suspicious): 3 points. "FNA if 2.5 cm or larger, follow up if 1.5 cm or larger (at 1, 3, and 5 years). TI-RADS 4 (moderately suspicious): 4-6 points. "FNA if 1.5 cm or larger, follow up if 1 cm or larger (at 1, 2, 3, and 5 years). TI-RADS 5 (highly suspicious): 7 points or more. "FNA if 1 cm or larger, follow up if 0.5 cm or larger (every year for 5 years). Reviewed by: Usman Kan MD on 10/30/2022 5:58 PM PST Approved by: Usman Kan MD on 10/30/2022 5:58 PM PST Station ID: [id number]
== END 2022-10-30 12:06 | disposition home or self-care (01) ==
LOC: DI 12:05
PROVIDERS: ATTEND Physician Assistant Medical
DX: E04.2 Nontoxic multinodular goiter (principal)

== ENCOUNTER 2022-11-03 09:08 | Outpatient (CLI) | payer MEDICARE ==
[2022-11-03 15:04] LABS: ALBUMIN 4.1 g/dL (3.2-5.5); ALBUMIN/GLOBULIN RATIO 1.7 (1.0-2.2); ALKALINE PHOSPHATASE 48 IU/L (42-121); ALT ALANINE AMINOTRANSFERASE 17 IU/L (10-60); AST ASPARTATE AMINOTRANSFERASE 16 IU/L (10-42); BILIRUBIN,TOTAL 0.7 mg/dL (0.2-1.0); BUN - BLOOD UREA NITROGEN 19 mg/dL (6-20); CALCIUM 9.1 mg/dL (8.5-10.3); CARBON DIOXIDE - CO2 29 mmol/L (21-32); CHLORIDE 108 mmol/L (101-111); CHOL/HDL RATIO 2.3 (<5.0); CHOLESTEROL 164 mg/dL; GFR - MDRD 71 (>89); GLUCOSE 103 mg/dL (70-100); HDL CHOLESTEROL 71 mg/dL; LDL CHOLESTEROL,CALCULATED 80 mg/dL; LDL/HDL RATIO 1.1 (<3.6); SODIUM 142 mmol/L (135-145); TOTAL PROTEIN 6.5 g/dL (6.7-8.2); TRIGLYCERIDES 66 mg/dL; VLDL CHOLESTEROL 13 mg/dL
[2022-11-03 16:21] LABS: THYROID STIMULATING HORMONE 4.66 uIU/mL (0.34-5.60)
== END 2022-11-03 09:09 | disposition home or self-care (01) ==
LOC: LAB.S 09:08
PROVIDERS: ATTEND Physician Assistant Medical
DX: E78.5 Hyperlipidemia, unspecified (principal); E04.1 Nontoxic single thyroid nodule; N40.0 Benign prostatic hyperplasia without lower urinary tract symptoms
CPT/HCPCS: 36415; 80053; 80061; 83721; 84443; 87086

== ENCOUNTER 2023-02-25 07:54 | Day surgery (SDC) | payer MEDICARE ==
[2023-02-25] MEDS ORDERED: LACTATED RINGERS 1,000 ML IV ONE (08:11)
--- NOTE | 2023-02-25 08:48 | ANESTHESIA ---
Pre-Anesthesia VS, & Labs - Diagnosis history of barretts - Procedure EGD Vital Signs: Temp Pulse Resp BP Pulse Ox O2 Flow Rate 36.3 C L 84 16 143/64 H 97 02/25/23 08:17 02/25/23 08:17 02/25/23 08:17 02/25/23 08:17 02/25/23 08:17 Height: 5 ft 7 in Weight (kg): 62 kg Body Mass Index: 21.4 BMI Classification: Normal - NPO >8 hours Home Medications and Allergies Albuterol [Ventolin Hfa] 1 mg INH Q4H PRN 05/18/15 Fluticasone [Flonase] 1 spray PAPI PRN PRN 05/18/15 Loratadine [Claritin] 10 mg PO DAILY 05/18/15 Multivitamin [Multiple Vitamins] 1 tab PO DAILY 05/14/18 Fluticasone/Salmeterol [Advair 100-50 Diskus] 1 puffs INH DAILY 07/06/19 traZODone [Desyrel] 25 mg PO DAILY 07/06/19 Allergies/Adverse Reactions: Allergies Allergy/AdvReac Type Severity Reaction Status Date / Time Sulfa (Sulfonamide Allergy Anaphylaxis Verified 07/07/19 08:57 Antibiotics) hydrocodone AdvReac Unknown Verified 07/07/19 08:57 oxycodone AdvReac Unknown Verified 07/07/19 08:57 Anes History & Medical History - Anesthetic History Anesthesia Complications: reports: No previous complications - Medical History Cardiovascular: reports: None Pulmonary: reports: Asthma, COPD Gastrointestinal: reports: GERD, Colon polyps, Diverticulitis Urinary: reports: Benign prostate hypertrophy, Kidney stones Neuro: reports: None Musculoskeletal: reports: Osteoarthritis Endocrine/Autoimmune: reports: None Skin: reports: None Smoking Status: Current every day smoker (pipe daily) Psychosocial: reports: No issues indicated History of Cancer?: No - Surgical History General: reports: Appendectomy, Colonoscopy, EGD Eyes Ears Nose Throat (EENT): reports: Tonsil/Adenoidectomy Exam General: Alert, Oriented x3, Cooperative, No acute distress Dental: Poor dentition Mouth Openin Fingerbreadth Neck Mobility: Normal Mallampati classification: II Thyromental Distance: 4-6 cm Mental/Cognitive Status: Alert/Oriented X3, Normal for patient Plan Anesthesia Type: General, Total IV Consent for Procedure(s) Verified and Reviewed: Yes Code Status: Attempt Resuscitation ASA classification: 2-Mild systemic disease Is this case an emergency?: No
[2023-02-25] MEDS ORDERED: LIDOCAINE-MPF 2% 5 ML VIAL ONE (09:46)
[2023-02-25] MEDS ORDERED: PROPOFOL 200 MG/20 ML VIAL IVP ONE (09:46)
[2023-02-25] MEDS ORDERED: LACTATED RINGERS 500 ML IV ONE (10:03)
[2023-02-25 10:25] VITALS: BP 129/51
--- NOTE | 2023-02-25 11:24 | ANESTHESIA POST OP EVALUATION ---
Anesthesia Post Eval - Post Anesthesia Eval Vitals: Last Vital Signs Temp 36.0 C L 02/25/23 10:18 Pulse 59 L 02/25/23 10:18 Resp 16 02/25/23 10:18 BP 129/51 L 02/25/23 10:18 Pulse Ox 98 02/25/23 10:18 O2 Flow Rate CV Function Including HR & BP: Stable Pain Control: Satisfactory Nausea & Vomiting: Negative Mental Status: Baseline Respiratory Status: Airway Patent Hydration Status: Satisfactory Anesthesia Complications: None
== END 2023-02-25 07:55 | disposition home or self-care (01) ==
LOC: SDS 07:54
PROVIDERS: ATTEND Surgery
PROC: 0DB48ZX Excision of Esophagogastric Junction, Via Natural or Artificial Opening Endoscopic, Diagnostic (ICD-10-PCS; principal; 2023-02-25 09:15)
DX: K22.70 Barrett's esophagus without dysplasia (principal); K31.7 Polyp of stomach and duodenum; J44.9 Chronic obstructive pulmonary disease, unspecified; F17.290 Nicotine dependence, other tobacco product, uncomplicated
CPT/HCPCS: 43239; J7120

== ENCOUNTER 2024-03-14 07:55 | Day surgery (SDC) | payer MEDICARE ==
[2024-03-14] MEDS: LACTATED RINGERS 1,000 ML IV ONE (08:07)
--- NOTE | 2024-03-14 08:37 | ANESTHESIA ---
Pre-Anesthesia VS, & Labs - Diagnosis barrets esophagus - Procedure EGD Vital Signs: Temp Pulse Resp BP Pulse Ox O2 Flow Rate 36.4 C L 62 20 152/81 H 100 03/14/24 08:07 03/14/24 08:07 03/14/24 08:07 03/14/24 08:07 03/14/24 08:07 Height: 5 ft 7 in Weight (kg): 61.5 kg Body Mass Index: 21.2 BMI Classification: Normal - NPO >8 hours Home Medications and Allergies Home Medications: Ambulatory Orders Acetaminophen [Tylenol] 650 mg PO Q6H PRN 03/08/24 Calcium Citrate 1,000 mg PO BID 03/08/24 Cholecalciferol (Vitamin D3) [Vitamin D3] 6,000 unit PO DAILY 03/08/24 Cholestyramine (with Sugar) [Cholestyramine Packet] 4 gm PO DAILY 03/08/24 Cyanocobalamin [Vitamin B-12] 1,000 mcg PO DAILY 03/08/24 Escitalopram [Lexapro] 5 mg PO DAILY 03/08/24 Fluticasone Propion/Salmeterol [Wixela 250-50 Inhub] 1 each IH BID 03/08/24 Glucosamine/D3/Boswellia Thelma [Osteo Bi-Flex Tablet] 1 each PO BID 03/08/24 Prasterone (Dhea) [Dhea] 830 mg PO DAILY 03/08/24 Psyllium Husk [Metamucil] 1 tsp PO DAILY 03/08/24 Fluticasone [Flonase] 1 spray PAPI PRN PRN 05/18/15 Loratadine [Claritin] 10 mg PO DAILY 05/18/15 Multivitamin [Multiple Vitamins] 1 tab PO DAILY 05/14/18 traZODone [Desyrel] 25 mg PO DAILY 07/06/19 Acetaminophen [Tylenol] 650 mg PO Q6H PRN 03/08/24 Calcium Citrate 1,000 mg PO BID 03/08/24 Cholecalciferol (Vitamin D3) [Vitamin D3] 6,000 unit PO DAILY 03/08/24 Cholestyramine (with Sugar) [Cholestyramine Packet] 4 gm PO DAILY 03/08/24 Cyanocobalamin [Vitamin B-12] 1,000 mcg PO DAILY 03/08/24 Escitalopram [Lexapro] 5 mg PO DAILY 03/08/24 Fluticasone Propion/Salmeterol [Wixela 250-50 Inhub] 1 each IH BID 03/08/24 Glucosamine/D3/Boswellia Thelma [Osteo Bi-Flex Tablet] 1 each PO BID 03/08/24 Prasterone (Dhea) [Dhea] 830 mg PO DAILY 03/08/24 Psyllium Husk [Metamucil] 1 tsp PO DAILY 03/08/24 Allergies/Adverse Reactions: Allergies Allergy/AdvReac Type Severity Reaction Status Date / Time Sulfa (Sulfonamide Allergy Anaphylaxis Verified 07/07/19 08:57 Antibiotics) hydrocodone AdvReac Unknown Verified 07/07/19 08:57 oxycodone AdvReac Unknown Verified 07/07/19 08:57 Anes History & Medical History - Anesthetic History Anesthesia Complications: reports: No previous complications - Medical History Cardiovascular: reports: None Pulmonary: reports: Asthma, COPD, Other (snores) Gastrointestinal: reports: GERD, Colon polyps, Diverticulitis Urinary: reports: Benign prostate hypertrophy, Nocturia, Kidney stones Neuro: reports: None Musculoskeletal: reports: Osteoarthritis Endocrine/Autoimmune: reports: None Skin: reports: None Smoking Status: Current every day smoker (pipe daily) Psychosocial: reports: Alcohol (2 oz of wine daily) - Surgical History General: reports: Appendectomy, Colonoscopy, EGD Eyes Ears Nose Throat (EENT): reports: Cataracts, Other Exam General: Alert, Oriented x3, Cooperative, No acute distress Dental: WNL Mouth Openin Fingerbreadth Neck Mobility: Normal Mallampati classification: II Thyromental Distance: 4-6 cm Mental/Cognitive Status: Alert/Oriented X3, Normal for patient Plan Anesthesia Type: General, Total IV Consent for Procedure(s) Verified and Reviewed: Yes Code Status: Attempt Resuscitation ASA classification: 2-Mild systemic disease Is this case an emergency?: No
[2024-03-14] MEDS ORDERED: PROPOFOL 500 MG/50 ML 500 MG/50 ML VIAL ONE (08:43)
[2024-03-14] MEDS: BENZOCAINE/TETRACAINE/BUTAMBEN 20 GM TOP ONE (09:09)
[2024-03-14] MEDS: LACTATED RINGERS 750 ML IV ONE (09:11)
[2024-03-14 09:41] VITALS: BP 111/37; O2SAT 95
--- NOTE | 2024-03-14 11:54 | ANESTHESIA POST OP EVALUATION ---
Anesthesia Post Eval - Post Anesthesia Eval Vitals: Last Vital Signs Temp 36.5 C 03/14/24 09:38 Pulse 68 03/14/24 09:38 Resp 16 03/14/24 09:38 BP 111/37 L 03/14/24 09:38 Pulse Ox 95 03/14/24 09:38 O2 Flow Rate CV Function Including HR & BP: Stable Pain Control: Satisfactory Nausea & Vomiting: Negative Mental Status: Baseline Respiratory Status: Airway Patent Hydration Status: Satisfactory Anesthesia Complications: None
== END 2024-03-14 07:56 | disposition home or self-care (01) ==
LOC: SDS 07:55
PROVIDERS: ATTEND Surgery
PROC: 0DB38ZX Excision of Lower Esophagus, Via Natural or Artificial Opening Endoscopic, Diagnostic (ICD-10-PCS; principal; 2024-03-14 09:00)
DX: K22.70 Barrett's esophagus without dysplasia (principal); J44.9 Chronic obstructive pulmonary disease, unspecified; F17.290 Nicotine dependence, other tobacco product, uncomplicated
CPT/HCPCS: 43239; A9270; J7120